=== PATIENT | female | born 2000 | race Two or more races ===

== ENCOUNTER 2020-10-06 19:24 | Emergency (ER) | payer SELFPAY ==
[2020-10-06 19:40] VITALS: BP 129/84; RESP 78; TEMP 36.9; O2SAT 98
--- NOTE | 2020-10-06 19:53 | ED.GENADULT ---
HPI - General Adult General Chief complaint: Wound/Laceration Stated complaint: Spider bite Time Seen by Provider: 10/06/20 19:26 History of Present Illness HPI narrative: Patient is a 19-year-old female who presents to the ER with concern for bite wound to the right forearm. She was sleeping on floor next to her daughter and thinks she was bit by a spider but did not see anything bite her. It is indurated and only half centimeter in diameter. Mild irritation. Patient reports pruritus. No fevers or chills or sweats. No drainage. Has not tried any topical ointments. Review of Systems Constitutional: Constitutional: Denies chills and Denies fever(s) Musculoskeletal: Musculoskeletal: Denies arthralgias and Denies joint swelling Integumentary/Breasts: Skin/Breast: Reports pruritus, Reports erythema and Denies skin ulcer PMFSH Past Medical History Medical History (Updated 10/06/20 @ 19:56 by Regino Le MD) Healthy female adult Surgical History Surgical History (Updated 10/06/20 @ 19:54 by Regino Le MD) H/O excision of ganglion cyst Social History Social History (Updated 10/06/20 @ 19:54 by Regino Le MD) Smoking status: Never smoker Exam Narrative: Exam Narrative: GENERAL: Well-appearing, well-nourished, and in no acute distress. HEAD: Normocephalic, atraumatic. EXTREMITIES: Normal range of motion. No edema. SKIN: Warm, dry. Right forearm with likely bite injury to the mid aspect. Indurated in the center with a cellulitis. No pustules or vesicles. NEURO: Alert and oriented x3. PSYCH: Normal mood and affect. Course Course Emergency Course: Patient informed of treatment plan and verbalized understanding. Feel this likely represents a bite injury and not cellulitis or abscess. Recommend topical antibiotic and hydrocortisone which patient has at home. Discharge Plan Discharge Clinical Impression: Bug bite Patient Disposition: Home, Self-Care Condition: Stable Instructions: Insect Bite or Sting (ED) Additional Instructions: Return the ER if your redness is increasing, you have increased pain, you develop fever over 100.4 ?F, there is drainage coming from your wound. Follow-up/Referrals: PHYSICIAN,DRY DIP WORKER [Primary Care Provider] - Jean Marie Ford MD [Physician] - 2 Weeks
== END 2020-10-06 20:00 | disposition home or self-care (01) ==
PROVIDERS: Emergency Provider Emergency Medicine
DX: S50.861A Insect bite (nonvenomous) of right forearm, initial encounter (principal); W57.XXXA Bitten or stung by nonvenomous insect and other nonvenomous arthropods, initial encounter
CPT/HCPCS: 99281